=== PATIENT | female | born 1945 ===

== ENCOUNTER 2018-10-12 14:03 | Outpatient (CLI) | payer OTHER | END 2018-10-12 14:08 | disposition home or self-care (01) | LOC: NUCLEAR 14:03 | DX: M81.0 Age-related osteoporosis without current pathological fracture (principal); I10 Essential (primary) hypertension; M54.5 Low back pain; Z01.810 Encounter for preprocedural cardiovascular examination; E03.8 Other specified hypothyroidism; Z13.820 Encounter for screening for osteoporosis ==